=== PATIENT | female | born 1940 | race Caucasian/White ===

== ENCOUNTER → 2016-12-14 | Day surgery (SDC) | payer MEDICARE, OTHER ==
[~2016-12-14] VITALS: Ht 165.1 cm; Wt 76.5 kg
[~2016-12-14] MED LIST: ALBUTEROL S5 MG/1 ML; ASPIRIN EC81 MG PO; BYSTOLIC10 MG PO; DRISDOL 5050000 UNIT PO; HYDROCHLOROTHIA50 MG PO; K-TAB 10MEQ10 MEQ PO; MELATONIN5 M2 PO; NORCO 5-325 TA1 EACH PO; NORVASC5 MG PO; OSCIMIN SR0.375 MG PO; OXYGEN M-15 NS; PRINIVIL OR ZES10 MG PO; SPIRIVA18 MCG INH; SYMBICORT 16010.2 GM INH; TRINTELLIX 20 MG PO; WELLBUTRIN XL300 M2 PO; ZYPREXA2.5 MG PO
--- NOTE | ~2016-12-14 | OR ---
PATIENT'S NAME: VILMA MAYORGA [facility] AGE: 76 Y [address] 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 Basal cell carcinoma, right medial cheek. 2. Squamous cell carcinoma, left lower extremity. POSTOPERATIVE DIAGNOSES: 1. Basal cell carcinoma, right medial cheek. 2. Squamous cell carcinoma, left lower extremity. PROCEDURE PERFORMED: 1. Excision of basal cell carcinoma left medial cheek 3 cm with intermediate closure 4 cm. 2. Excision of left lower extremity squamous cell carcinoma 4 cm with split- thickness skin graft 12 cm2. INDICATION FOR PROCEDURE: Mrs. Mayorga is a 76-year-old female, who presents with a biopsy-proven basal cell carcinoma involving the medial aspect of the right cheek and a squamous cell carcinoma involving the left lower extremity. She presents today for definitive excision. DESCRIPTION OF PROCEDURE: The patient was brought to the operating room and placed supine. General anesthesia was administered. The patient's left lower extremity was prepped circumferentially with Betadine and draped sterilely. The facial area was also prepped with Betadine and draped sterilely. A 1% lidocaine with epinephrine was injected into both biopsy sites. The fascial lesion was addressed initially. An incision was created around the lesion including a margin of adequate and normal appearing tissue. The lesion was excised, tagged for reference and sent to pathology for frozen section analysis, which returned margins clear. While waiting for the pathology to return on the facial lesion, the lower extremity lesion was excised. Frozen section returned clear margins, but with actinic changes present on the lateral margin. This margin was reexcised and was sent to pathology for eventual permanent sections. Once hemostasis was obtained, the facial area was conservatively undermined around its edges. Due to the laxity of skin and soft tissue, the edges were PATIENT'S NAME: VILMA MAYORGA [facility] AGE: 76 Y [address] ROOM: [place] [id number] [place] [facility] [place] DATE: 12/14/2016 OR/Procedure Report DISCHARGE DATE: FAMILY PHYSICIAN: Nimesh Moreno MD ATTENDING PHYSICIAN: Genoveva Bahena able to be reapproximated with a combination of 4-0 Vicryl and 5-0 Prolene. A split-thickness skin graft was harvested from the anterior left thigh. This graft was applied and secured with skin joyce and a bolster dressing. Sterile dressings were applied to the donor site as well as the graft site. The patient was awakened and returned to recovery in stable condition. Estimated blood loss approximately 10 mL. GENOVEVA BAHENA MD JRA/modl /[id number] d: 12/14/166 t: 12/17/16 1302, OPERATIVE SUMMARY
== END ==
LOC: GPOC 12-08 13:00 → GSDC 07:31 → GPOC 13:00
PROC: 0HRLX74 Replacement of Left Lower Leg Skin with Autologous Tissue Substitute, Partial Thickness, External Approach (ICD-10-PCS; principal; 2016-12-14)
PROC: 0HB1XZZ Excision of Face Skin, External Approach (ICD-10-PCS; 2016-12-14)
PROC: 0HQ1XZZ Repair Face Skin, External Approach (ICD-10-PCS; 2016-12-14)
DX: C44.319 Basal cell carcinoma of skin of other parts of face (principal); D04.72 Carcinoma in situ of skin of left lower limb, including hip; M19.90 Unspecified osteoarthritis, unspecified site; F32.9 Major depressive disorder, single episode, unspecified; F41.9 Anxiety disorder, unspecified; I10 Essential (primary) hypertension; J44.9 Chronic obstructive pulmonary disease, unspecified; G25.81 Restless legs syndrome; Z98.890 Other specified postprocedural states; Z98.41 Cataract extraction status, right eye; Z98.42 Cataract extraction status, left eye; Z79.82 Long term (current) use of aspirin; Z79.899 Other long term (current) drug therapy; Z88.8 Allergy status to other drugs, medicaments and biological substances; Z88.2 Allergy status to sulfonamides
CPT/HCPCS: J0690; J2001; J2250; J2405; J7120